=== PATIENT | male | born 1980 | race Caucasian/White ===

== ENCOUNTER 2020-05-25 17:18 | Emergency (ER) | payer BC, SELFPAY ==
--- NOTE | ~2020-05-25 | XR_ITS ---
EXAMINATION: XR chest 2V DATE: 05/25/2020 19:55 INDICATION: Weakness. TECHNIQUE: Frontal and lateral views of the chest were obtained. COMPARISON: Chest 2 views 11/04/2017 FINDINGS: The chest demonstrates clear lungs without pneumonia, pleural effusion, or pneumothorax. Th e heart size is normal. IMPRESSION: 1. No acute cardiopulmonary disease. Reviewed, dictated and finalized at location A.
[2020-05-25 17:33] VITALS: BP 121/80; PULSE 85; RESP 16; TEMP 36.1; O2SAT 99
--- NOTE | 2020-05-25 19:15 | ECG_ITS ---
Measurements Intervals [place] Rate: 80 P: 22 DE: 141 QRS: 36 QRSD: 98 T: 33 QT: 362 QTc: 419 Interpretive Statements SINUS RHYTHM INCOMPLETE RIGHT BUNDLE BRANCH BLOCK BORDERLINE ECG Electronically Signed On 05-25-2020 20:08:43 CDT by Arias Costa D.O.
[2020-05-25 19:49] LABS: Basophils Percent Auto 0.5 % (0.2-1.2); Eosinophils Absolute Auto 0.4 K/mm3 (0-0.3); Eosinophils Percent Auto 4.7 % (0-4.4); Hematocrit 47.2 % (42.0-52.0); Hemoglobin 16.2 g/dL (14.0-18.0); Immature Granulocyte Absolute 0.02 K/mm3 (0.00-0.031); Immature Granulocyte Percent A 0.2 % (0-0.5); Lymphocytes Absolute Auto 2.49 K/mm3 (0.9-3.2); Lymphocytes Percent Auto 30.3 % (18.3-44.2); Mean Corpuscular HGB Conc 34.3 g/dl (32-36); Mean Corpuscular Hemoglobin 31.8 pg (26-34); Mean Corpuscular Volume 92.5 fl (80-100); Mean Platelet Volume 9.6 fl (7.4-10.4); Monocytes Absolute Auto 0.4 K/mm3 (0.1-0.6); Monocytes Percent Auto 5.3 % (2.6-8.5); Neutrophils Absolute Auto 4.9 K/mm3 (1.3-6.7); Platelet Count Result 288 k/mm3 (150-375); Red Cell Distribution Width 13.2 % (11.5-14.5); White Blood Count 8.2 K/mm3 (4.5-10.0)
--- NOTE | 2020-05-25 19:52 | ED.WEAKNESS ---
HPI - Weakness General Chief complaint: Weakness Stated complaint: no appetite, in a daze, no energy, achey Time Seen by Provider: 05/25/20 19:21 History of Present Illness HPI Narrative: Patient is a 39-year-old male who presents the ER with generalized fatigue for the last week. Reports he is having inability to sleep at night. He has decreased appetite. Denies depressed mood. He is concerned about his thyroid because his sister had thyroid cancer. He also endorses mild sinus congestion with cough when he lays down at night and when he wakes up in the morning. No fevers or chills or sweats. No chest pain/chest pressure. No exertional functional decline. Related Data Home Medications Medication Instructions Recorded Confirmed No Home Medications 05/25/20 05/25/20 Allergies Allergy/AdvReac Type Severity Reaction Status Date / Time No Known Allergies Allergy Verified 05/25/20 19:16 Review of Systems Review of Systems: All systems reviewed & are unremarkable except as noted in HPI and below Constitutional: Constitutional: Denies chills, Reports fatigue, Denies fever(s) and Reports weakness ENT: Denies dizziness, Reports nasal congestion and Denies sore throat Cardiovascular: Cardiovascular: Denies chest pain and Denies radiating jaw, neck or arm pain Respiratory: Respiratory: Denies cough, Denies dyspnea and Denies wheezing Psychiatric: Psychiatric: Denies anxiety, Denies depression and Denies suicidal ideation PMFSH Past Medical History Medical History (Updated 05/25/20 @ 22:01 by Denzel Cheung MD) Healthy adult male Surgical History Surgical History (Updated 05/25/20 @ 19:54 by Denzel Cheung MD) History of gastric bypass Social History Social History (Updated 05/25/20 @ 19:54 by Denzel Cheung MD) Smoking status: Never smoker Exam Narrative: Exam Narrative: GENERAL: Well-appearing, well-nourished, and in no acute distress. HEAD: Normocephalic, atraumatic. CHEST: Clear to auscultation. No respiratory distress. HEART: Regular rate and rhythm. Normal peripheral pulses. ABDOMEN: Soft, nontender, nondistended. EXTREMITIES: Normal range of motion. No edema. NEURO: Alert and oriented x3. PSYCH: Normal mood and affect. Course Course Emergency Course: Patient informed of results. Recommend follow-up with PCP for evaluation of elevated TSH but normal free T4. Vital Signs Vital signs: Vital Signs Temperature 96.9 F L 05/25/20 17:33 Pulse Rate 85 05/25/20 17:33 Respiratory Rate 16 05/25/20 17:33 Blood Pressure 121/80 05/25/20 17:33 Pulse Oximetry 99 05/25/20 17:33 Temperature 96.9 F L 05/25/20 17:33 Pulse Rate 93 05/25/20 21:57 Respiratory Rate 14 05/25/20 21:57 Blood Pressure 143/9 H 05/25/20 21:57 Pulse Oximetry 97 05/25/20 21:57 MDM - Weakness Lab Data Result diagrams: 05/25/20 19:41 05/25/20 19:41 Labs: Lab Results 05/25/20 05/25/20 05/25/20 Range/Units 19:41 19:41 19:59 WBC 8.2 (4.5-10.0) K/mm3 RBC 5.10 (4.6-6.20) M/mm3 Hgb 16.2 (14.0-18.0) g/dL Hct 47.2 (42.0-52.0) % MCV 92.5 (80-100) fl MCH 31.8 (26-34) pg MCHC 34.3 (32-36) g/dl RDW 13.2 (11.5-14.5) % Plt Count 288 (150-375) k/mm3 MPV 9.6 (7.4-10.4) fl Immature Gran % (Auto) 0.2 (0-0.5) % Neut % (Auto) 59.0 (45.5-73.1) % Lymph % (Auto) 30.3 (18.3-44.2) % [place] % (Auto) 5.3 (2.6-8.5) % Eos % (Auto) 4.7 H (0-4.4) % Baso % (Auto) 0.5 (0.2-1.2) % Lymph # (Auto) 2.49 (0.9-3.2) K/mm3 [place] # (Auto) 0.4 (0.1-0.6) K/mm3 Eos # (Auto) 0.4 H (0-0.3) K/mm3 Baso # (Auto) 0.0 (0.0-0.1) K/mm3 Abs Immat Gran (auto) 0.02 (0.00-0.031) K/mm3 Absolute Neuts (auto) 4.9 (1.3-6.7) K/mm3 Absolute Nucleated RBC 0.0 (0.0-0.012) K/mm3 Nucleated RBC % 0.0 (0.0-0.2) % Sodium 138 (137-145) mmol/L Potassium 4.4 (3.4-5.0) mmol/L Chlo
[2020-05-25 20:01] LABS: Alanine Aminotransferase 32 U/L (4-50); Albumin Level 4.3 g/dL (3.5-5.1); Alkaline Phosphatase 78 U/L (38-126); Aspartate Amino Transferase 38 U/L (17-59); Bilirubin,Total 2.3 mg/dL (0.2-1.3); Blood Urea Nitrogen 10 mg/dL (9-20); Carbon Dioxide 24 mmol/L (22-30); Chloride 104 mmol/L (98-107); Estimated CRCL calculation 159 ml/min; Estimated Glomerular Filt Rate > 60; Glucose 109 mg/dL (75-110); Potassium 4.4 mmol/L (3.4-5.0); Sodium 138 mmol/L (137-145)
[2020-05-25 20:45] LABS: Add Urine Microscopic? YES; Appearance Urine Clear (Clear); Bacteria Urine Trace /hpf; Bilirubin Urine 1+ (Negative); Blood Urine Negative (Negative); Color Urine Yellow (Yellow); Glucose Urine UA Negative (Negative); Ketones Urine Negative (Negative); Leukocyte Esterase Ur Negative LEU/UL (Negative); Mucus Urine Heavy /lpf; Nitrate Urine Negative (Negative); Protein Urine 1+ mg/dL (Negative); Specific Grav Ur 1.024 (1.001-1.035); Squamous Epithelial Cell Urine Moderate /hpf (Few); WBC Urine 0-3 /hpf
[2020-05-25 21:34] LABS: Free T4 Free Thyroxine Reflex 1.02 ng/dL (0.78-2.19)
[2020-05-25 21:57] VITALS: BP 143/9; PULSE 93; RESP 14; O2SAT 97
[2020-05-25 22:19] LABS: Total Triiodothyronine (T3) 1.38 NG/ML (0.97-1.69)
== END 2020-05-25 22:19 | disposition home or self-care (01) ==
PROVIDERS: Emergency Provider Emergency Medicine; PCP Family Medicine
DX: R53.83 Other fatigue (principal); Z98.84 Bariatric surgery status
CPT/HCPCS: 36415; 71046; 80053; 81001; 84439; 84443; 84480; 85025; 93005; 99283

== ENCOUNTER 2021-09-05 16:16 | Outpatient (CLI) | payer OTHER, SELFPAY ==
--- NOTE | ~2021-09-05 | XR_ITS ---
XR hip RT min 2V 09/05/2021 18:34 INDICATION: Polyarthralgia PROCEDURE: 2 view right hip COMPARISON: No prior studies for comparison. FINDINGS: Fracture, dislocation or subluxation is not identified. No significant joint space narrowin g. The soft tissues appear within normal limits. No foreign bodies are identified. IMPRESSION: 1: NO ACUTE BONE OR JOINT ABNORMALITY IDENTIFIED. Reviewed, dictated and finalized at location A.
--- NOTE | ~2021-09-05 | XR_ITS ---
XR sacroiliac joints min 3V 09/05/2021 18:34 Indication: Polyarthralgia Procedure: 6 views of the sacroiliac joints Comparison: No prior studies for comparison. Findings: There is mild bilateral symmetric degenerative changes of the sacroiliac joints. No erosive changes. No ankylosis. Sacral foramen are symmetric. Impression: 1: Mild bilateral symmetric degenerative changes of the sacroiliac joints. Reviewed, dictated and finalized at location A. Impression: 1: Mild bilateral symmetric degenerative changes of the sacroiliac joints.
--- NOTE | ~2021-09-05 | XR_ITS ---
XR knee RT 2V, XR knee LT 2V 09/05/2021 18:34 Indication: Polyarthralgia Procedure: 2 views each knee Comparison: No prior studies for comparison. Findings: There is mild-moderate bilateral tricompartment osteoarthritis of the knee, most advanced i n the medial compartments, left greater than right. No fracture, subluxation or dislocation. No signi ficant joint effusion. Impression: 1: Mild-moderate bilateral tricompartment osteoarthritis of the knees, left greater than right. Reviewed, dictated and finalized at location A. Impression: 1: Mild-moderate bilateral tricompartment osteoarthritis of the knees, left gre ater than right. Impression: 1: Mild-moderate bilateral tricompartment osteoarthritis of the knees, left gre ater than right.
--- NOTE | ~2021-09-05 | XR_ITS ---
XR hand BI arthritis min 3V 09/05/2021 18:34 Indication: Polyarthralgias Procedure: 4 views each hand Comparison: No prior studies for comparison. Findings: There is a small foreign body in the soft tissues dorsal to the right fifth metacarpal. Riri nt spaces in the hands are normal. No significant degenerative change. No erosions. No significant so ft tissue swelling. Impression: 1: No significant bone or joint abnormality. No significant osteoarthritis or evidence for erosive ch alberta. Reviewed, dictated and finalized at location A. Impression: 1: No significant bone or joint abnormality. No significant osteoarthritis or e vidence for erosive change.
== END 2021-09-05 16:17 ==
DX: M25.50 Pain in unspecified joint (principal); M17.0 Bilateral primary osteoarthritis of knee
CPT/HCPCS: 72202; 73130; 73502; 73560

== ENCOUNTER 2021-11-24 01:51 | Emergency (ER) | payer OTHER, SELFPAY ==
--- NOTE | ~2021-11-24 | XR_ITS ---
XR chest 1V portable INDICATION: Left-sided chest pain TECHNIQUE: 2 view chest. FINDINGS: 05/25/2020 There is mild bilateral interstitial prominence and peribronchial cuffing. There is no focal consoli dation, pleural effusion, or pneumothorax. The cardiomediastinal silhouette is normal. IMPRESSION: 1. Findings most consistent with bronchiolitis versus an atypical or viral pneumonia. Reviewed, dictated and finalized at location A. [employer]IC HELPER IMPRESSION: 1. Findings most consistent with bronchiolitis versus an atypical or viral [facility].
--- NOTE | 2021-11-24 01:54 | ECG_ITS ---
Measurements Intervals [place] Rate: 91 P: 16 MO: 146 QRS: 28 QRSD: 99 T: 32 QT: 348 QTc: 430 Interpretive Statements SINUS RHYTHM INCOMPLETE RIGHT BUNDLE BRANCH BLOCK BORDERLINE ECG Electronically Signed On 11-24-2021 5:57:57 CANE BURNER by Arias Costa D.O.
[2021-11-24] MEDS: ASPIRIN 81 MG CHEWABLE TABLET 324 MG PO (02:10)
[2021-11-24 02:11] VITALS: BP 136/96; PULSE 103; RESP 17; TEMP 36.7; O2SAT 98
[2021-11-24 02:14] LABS: Basophils Percent Auto 0.4 % (0.2-1.2); Eosinophils Absolute Auto 0.1 K/mm3 (0-0.3); Eosinophils Percent Auto 1.5 % (0-4.4); Hematocrit 46.8 % (42.0-52.0); Hemoglobin 15.6 g/dL (14.0-18.0); Immature Granulocyte Absolute 0.02 K/mm3 (0.00-0.031); Immature Granulocyte Percent A 0.4 % (0-0.5); Lymphocytes Absolute Auto 1.51 K/mm3 (0.9-3.2); Lymphocytes Percent Auto 28.7 % (18.3-44.2); Mean Corpuscular HGB Conc 33.3 g/dl (32-36); Mean Corpuscular Hemoglobin 30.7 pg (26-34); Mean Corpuscular Volume 92.1 fl (80-100); Mean Platelet Volume 9.8 fl (7.4-10.4); Monocytes Absolute Auto 0.5 K/mm3 (0.1-0.6); Monocytes Percent Auto 8.5 % (2.6-8.5); Neutrophils Absolute Auto 3.2 K/mm3 (1.3-6.7); Neutrophils Percent Auto 60.5 % (45.5-73.1); Platelet Count Result 217 k/mm3 (150-375); Red Blood Count 5.08 M/mm3 (4.6-6.20); Red Cell Distribution Width 13.4 % (11.5-14.5); White Blood Count 5.3 K/mm3 (4.5-10.0)
[2021-11-24 02:18] VITALS: PULSE 97
[2021-11-24 02:24] LABS: INR 1.1; Prothrombin Time 14.1 Seconds (11.1-14.7)
[2021-11-24 02:25] LABS: Partial Thromboplastin Time 31.2 SECONDS (22.3-36.8)
[2021-11-24 02:28] LABS: Alanine Aminotransferase 47 U/L (4-50); Albumin Level 4.3 g/dL (3.5-5.1); Alkaline Phosphatase 72 U/L (38-126); Anion Gap 13 mmol/L (8-16); Aspartate Amino Transferase 48 U/L (17-59); Bilirubin,Total 1.2 mg/dL (0.2-1.3); Blood Urea Nitrogen 12 mg/dL (9-20); Calcium 8.7 mg/dL (8.4-10.2); Carbon Dioxide 19 mmol/L (22-30); Chloride 104 mmol/L (98-107); Estimated CRCL calculation 191 ml/min; Estimated Glomerular Filt Rate > 60; Glucose 110 mg/dL (65-110); Lipase 52 U/L (23-300); Sodium 136 mmol/L (137-145)
[2021-11-24] MEDS: ALBUTEROL SULFATE (*SP) INHALER 2 PUFF INHALATION (02:38)
[2021-11-24 02:39] LABS: Troponin I < 0.012 ng/mL (0.000-0.034)
[2021-11-24 03:03] LABS: D Dimer < 0.22 ug/mL (<0.48)
[2021-11-24] MEDS: BENZONATATE 100 MG CAPSULE 200 MG PO (03:05)
[2021-11-24 03:07] VITALS: BP 129/86; PULSE 106; RESP 20; O2SAT 97
--- NOTE | 2021-11-24 03:23 | ED.GENADULT ---
HPI - General Adult General Chief complaint: Chest Pain Stated complaint: chest heavy, shortness of breath Time Seen by Provider: 11/24/21 02:09 History of Present Illness HPI narrative: Patient is a 41-year-old gentleman who presents the emergency department with chief complaint of chest tightness. Patient reports he was diagnosed with COVID-19 and reports that he has been coughing the patient reports that he has a tightness and fullness in his chest patient reports symptoms are not improved by anything nor they worsened by anything. Related Data Allergies Allergy/AdvReac Type Severity Reaction Status Date / Time No Known Allergies Allergy Verified 11/24/21 02:09 Review of Systems Review of Systems: A 10 system review of systems was completed on the patient and is negative except for what is stated in the HPI. Nursing and ancillary documentation was reviewed. [facility] Past Medical History Medical History Healthy adult male Surgical History Surgical History History of gastric bypass Family History Family History Other Cerebrovascular accident Diabetes mellitus Family history of coronary artery disease Family history of malignant neoplasm of male breast Hypertension Social History Social History Smoking status: Never smoker Alcohol intake: current Exam Narrative: GENERAL: Well-appearing, well-nourished, and in no acute distress. HEAD: Normocephalic, atraumatic. EYES: PERRLA and EOMI. ENT: Nares clear, no rhinorrhea or epistaxis. Mucous membranes moist. NECK: Supple. CHEST: Clear to auscultation. No respiratory distress. HEART: Regular rate and rhythm. No murmur heard. Normal peripheral pulses. ABDOMEN: Soft, nontender, nondistended, normal active bowel sounds. EXTREMITIES: Normal range of motion. No edema. SKIN: Warm, dry, no rash. NEURO: No focal deficits. Alert and oriented x3. PSYCH: Normal mood and affect. Course Course Emergency Course: Chest x-ray shows no evidence of focal consolidation EKG shows sinus rhythm rate of [address] elevation or ST depression Vital Signs Vital signs: Vital Signs Temperature 36.7 C 11/24/21 02:11 Pulse Rate 103 H 11/24/21 02:11 Respiratory Rate 17 11/24/21 02:11 Blood Pressure 136/96 H 11/24/21 02:11 Pulse Oximetry 98 11/24/21 02:11 Temperature 36.7 C 11/24/21 02:11 Pulse Rate 106 H 11/24/21 03:07 Respiratory Rate 20 11/24/21 03:07 Blood Pressure 129/86 11/24/21 03:07 Pulse Oximetry 97 11/24/21 03:07 Medical Decision Making Vital Signs Vital Signs: Vital Signs Temperature 36.7 C 11/24/21 02:11 Pulse Rate 103 H 11/24/21 02:11 Respiratory Rate 17 11/24/21 02:11 Blood Pressure 136/96 H 11/24/21 02:11 Pulse Oximetry 98 11/24/21 02:11 Temperature 36.7 C 11/24/21 02:11 Pulse Rate 106 H 11/24/21 03:07 Respiratory Rate 20 11/24/21 03:07 Blood Pressure 129/86 11/24/21 03:07 Pulse Oximetry 97 11/24/21 03:07 Lab Data Result diagrams: 11/24/21 02:08 11/24/21 02:08 Labs: Lab Results 11/24/21 11/24/21 11/24/21 Range/Units 02:07 02:07 02:08 WBC 5.3 (4.5-10.0) K/mm3 RBC 5.08 (4.6-6.20) M/mm3 Hgb 15.6 (14.0-18.0) g/dL Hct 46.8 (42.0-52.0) % MCV 92.1 (80-100) fl MCH 30.7 (26-34) pg MCHC 33.3 (32-36) g/dl RDW 13.4 (11.5-14.5) % Plt Count 217 (150-375) k/mm3 MPV 9.8 (7.4-10.4) fl Immature Gran % (Auto) 0.4 (0-0.5) % Neut % (Auto) 60.5 (45.5-73.1) % Lymph % (Auto) 28.7 (18.3-44.2) % [place] % (Auto) 8.5 (2.6-8.5) % Eos % (Auto) 1.5 (0-4.4) % Baso % (Auto) 0.4 (0.2-1.2) % Lymph # (Auto) 1.51 (0.9-3.2) K/mm3 [place] # (Auto) 0.
[2021-11-24] MEDS: MORPHINE SULFATE (*CRX) 4 MG/ML INJ IV PUSH (03:40)
[2021-11-24 04:06] VITALS: BP 120/76; PULSE 98; RESP 20; O2SAT 96
== END 2021-11-24 04:08 | disposition home or self-care (01) ==
PROVIDERS: Emergency Provider Emergency Medicine; PCP Family Medicine
DX: U07.1 COVID-19 (principal); R07.89 Other chest pain; Z98.84 Bariatric surgery status
CPT/HCPCS: 36415; 71045; 80053; 83690; 84484; 85025; 85380; 85610; 85730; 93005; 94640; 96374; 99284; A9270; J2270

== ENCOUNTER 2022-07-11 18:13 | Emergency (ER) | payer BC, SELFPAY ==
--- NOTE | ~2022-07-11 | XR_ITS ---
EXAMINATION: XR chest 2V DATE: 07/11/2022 18:44 INDICATION: Chest pain TECHNIQUE: frontal and lateral views of the chest were obtained. COMPARISON: Chest radiograph dated 11/24/2021 FINDINGS: Assessment of fine pulmonary parenchymal detail is mildly limited by patient body habitus. Lung volum es remain small. No focal airspace opacities, pulmonary edema, pleural effusion or pneumothorax. The cardiomediastinal silhouette is within normal limits for AP technique. Mild thoracic spondylosis. IMPRESSION: 1. Persistent small lung volumes. No acute cardiopulmonary disease. Reviewed, dictated and finalized at location A.
--- NOTE | 2022-07-11 18:21 | ECG_ITS ---
Measurements Intervals [place] Rate: 82 P: -2 MO: 138 QRS: 22 QRSD: 96 T: 32 QT: 368 QTc: 432 Interpretive Statements SINUS RHYTHM EARLY PRECORDIAL R/S TRANSITION BORDERLINE ECG COMPARED TO ECG 11/24/2021 01:59:24 NO SIGNIFICANT CHANGES Electronically Signed On 07-11-2022 20:39:23 CDT by Arias Costa D.O.
[2022-07-11 18:24] VITALS: BP 116/76; PULSE 80; RESP 16; TEMP 36.6; O2SAT 99
[2022-07-11 18:39] LABS: Basophils Absolute Auto 0.1 K/mm3 (0.0-0.1); Basophils Percent Auto 0.7 % (0.2-1.2); Eosinophils Absolute Auto 0.2 K/mm3 (0-0.3); Eosinophils Percent Auto 3.2 % (0-4.4); Hematocrit 42.7 % (42.0-52.0); Hemoglobin 13.6 g/dL (14.0-18.0); Immature Granulocyte Absolute 0.03 K/mm3 (0.00-0.031); Immature Granulocyte Percent A 0.4 % (0-0.5); Lymphocytes Absolute Auto 2.16 K/mm3 (0.9-3.2); Lymphocytes Percent Auto 29.9 % (18.3-44.2); Mean Corpuscular HGB Conc 31.9 g/dl (32-36); Mean Corpuscular Hemoglobin 26.9 pg (26-34); Mean Corpuscular Volume 84.4 fl (80-100); Mean Platelet Volume 10.1 fl (7.4-10.4); Monocytes Absolute Auto 0.6 K/mm3 (0.1-0.6); Monocytes Percent Auto 8.7 % (2.6-8.5); Neutrophils Absolute Auto 4.1 K/mm3 (1.3-6.7); Neutrophils Percent Auto 57.1 % (45.5-73.1); Platelet Count Result 313 k/mm3 (150-375); Red Blood Count 5.06 M/mm3 (4.6-6.20); Red Cell Distribution Width 14.3 % (11.5-14.5); White Blood Count 7.2 K/mm3 (4.5-10.0)
[2022-07-11 18:50] LABS: Alanine Aminotransferase 25 U/L (6-50); Albumin Level 4.3 g/dL (3.5-5.1); Alkaline Phosphatase 62 U/L (38-126); Anion Gap 16 mmol/L (8-16); Aspartate Amino Transferase 28 U/L (17-59); Bilirubin,Total 1.1 mg/dL (0.2-1.3); Blood Urea Nitrogen 9 mg/dL (9-20); Calcium 8.9 mg/dL (8.4-10.2); Carbon Dioxide 21 mmol/L (22-30); Chloride 100 mmol/L (98-107); Estimated CRCL calculation 182 ml/min; Estimated Glomerular Filt Rate > 60; Glucose 111 mg/dL (65-110); Lipase 39 U/L (23-300); Sodium 137 mmol/L (137-145)
[2022-07-11 18:52] LABS: INR 1.2; Prothrombin Time 14.6 Seconds (11.1-14.7)
[2022-07-11 18:53] LABS: Partial Thromboplastin Time 27.4 SECONDS (22.3-36.8)
[2022-07-11 19:02] LABS: Troponin I < 0.012 ng/mL (0.000-0.034)
--- NOTE | 2022-07-11 21:17 | PC.NURSE ---
Addendum entered by Tanya Mark RN 07/11/22 21:27: No obvious distress at time of leaving. PT verbalized understanding to go to closest ED if s/s persist or worsen. a&Ox4, resp even non-labored. skin pwd. Original Note: Pt came up to intake nurse and aske dhow long the wait for a room would be. Nurse could not specify at this time.
== END 2022-07-11 18:24 | disposition left against medical advice (07) ==
PROVIDERS: Emergency Provider Emergency Medicine; PCP Family Medicine
DX: R07.9 Chest pain, unspecified (principal)
CPT/HCPCS: 36415; 71046; 80053; 83690; 84484; 85025; 85610; 85730; 93005; 99199

== ENCOUNTER 2025-01-19 19:43 | Emergency (ER) | payer BC, OTHER, SELFPAY ==
--- NOTE | ~2025-01-19 | XR_ITS ---
XR chest 2V Ordering provider: Jero Parada History: 44 years Male with . cp . Comparison: None. FINDINGS: MEDIASTINUM: The cardiac silhouette is not enlarged. LUNGS: No effusions or pneumothorax. Opacification the left lung base is seen suggestive of atelecta sis versus pneumonia. OTHER: No free air under the diaphragm. Degenerative changes of the spine. IMPRESSION: Left basal atelectasis versus pneumonia. Reviewed, dictated and finalized at location A.
--- NOTE | 2025-01-19 19:43 | ECG_ITS ---
Test Date: 2025-01-19 19:44:04 Measurements Intervals [place] Rate: 90 P: -10 IN: 111 QRS: 41 QRSD: 102 T: 35 QT: 359 QTc: 439 Interpretive Statements SINUS RHYTHM WITH SHORT IN INTERVAL RSR' IN V1 OR V2, PROBABLY NORMAL VARIANT No previous ECG available for comparison Electronically Signed On 01-20-2025 14:00:45 CDT by Obi Razo M.D.
[2025-01-19 19:44] VITALS: BP 138/82; PULSE 102; RESP 24; TEMP 36.4; O2SAT 99
--- OUTSIDE RECORDS SUMMARY | 2025-01-19 19:45 | XMS_ITS | Continuity of Care Document ---
Author Organization [facility] Address [address] [place] [address] [address] [place] [address] Phone Care Team Providers Care Platform Attendant Name Role Phone Gerardo PT,MPT,ATC, Shahriar Unavailable Unavai lable Procedures Procedure Date THERAPEUTIC EXERCISES FUNC ACTIVITY Theratube/band PT EVALUATION THERAPEUTIC EXERCISES FUNC ACTIVITY THERAPEUTIC EXERCISES FUNC ACTIVITY THERAPEUTIC EXERCISES FUNC ACTIVITY THERAPEUTIC EXERCISES FUNC ACTIVITY Theratube/band THERAPEUTIC EXERCISES FUNC ACTIVITY THERAPEUTIC EXERCISES FUNC ACTIVITY THERAPEUTIC EXERCISES FUNC ACTIVITY THERAPEUTIC EXERCISES THERAPEUTIC EXERCISES FUNC ACTIVITY THERAPEUTIC EXERCISES FUNC ACTIVITY THERAPEUTIC EXERCISES FUNC ACTIVITY PT EVALUATION THERAPEUTIC EXERCISES FUNC ACTIVITY Advance Directives Directive Yes / No Effective Date File Name No Information Encounters Encounter Description Practice Location Reason(s) For Visit Diagnoses Date Provider Providers Copied on Encounter [facility], [address] [place], [place] [address], [place], [place], [id number], tel:[phone] [place] No Information 7 [facility] , [place], [place]. Referring Provider: Leonel Flores, [address], [place], [address]. tel:[phone] [facility], [place], [place], [address], [place] tel:[phone] [place] No Information 7 [place], [place], [place]. Referring Provider: Denzel Adam, [address], [place], [address]. tel:[phone] [facility], [place], [place], [address], [place] tel:[phone] [place] Stiffness of left shoulder, not elsewhere classifiedMuscle weakness (generalized)Abn ormal posture 6 [facility], [facility] [place]. [address] [facility], [address], [place], [place], [facility], [place]. tel: [phone] Referring Provider: Leonel Flores, [address], [place], [address]. tel:[phone] [facility] [facility], [place], [place], [address], [place] tel:[phone] [place] No Information 6 [place], [place], [place]. Referring Provider: Denzel Adam, [address], [place], [address]. tel:[phone] [facility], [place], [place], [address], [place] tel:[phone] [place] No Information 6 [place], [place], [place]. Referring Provider: Denzel Adam, [address], [place], [address]. tel:[phone] [facility], [place], [place], [address], [place] tel:[phone] [place] No Information 6 [facility]. , [place], [place]. Referring Provider: Denzel Adam, [address], [place], [address]. tel:[phone] [facility], [address], [place], [place], [address], [place] tel:[phone] [place] No Information 6 [facility] , [place]. Referring Provider: Denzel Adam, [address], [place], [address]. tel:[phone] [facility], [address], [place], [place], [address], [place] tel:[phone] [place] No Information 6 [facility] , [place]. Referring Provider: Denzel Adam, [address], [place], [address]. tel:[phone] [facility], [place], [place], [address], [place] tel:[phone] [place] No Information 6 [facility] , [place], [place]. Referring Provider: Denzel Adam, [address], [place], [address]. tel:[phone] [facility], [address], [place], [place], [address], [place] tel:[phone] [place] No Information 6 [facility] , [place]. Referring Provider: Denzel Adam, [address], [place], [address]. tel:[phone] [facility], [place], [place], [address], [place] tel:[phone] [place] No Information 6 [facility] , [place], [place]. Referring Provider: Denzel Adam, [address], [place], [address]. tel:[phone] [facility], [address], [place], [place], [address], tel:[phone] [place] No Information 6 [place], [place], . Referring Provider: Denzel Adam, [address], [place], [address]. tel:[phone] [facility] [address], [place], [place], [address], [place] tel:[phone] [place] No Information 6 [place], . Referring Provider: Denzel Adam, [address], [facility] [place], [address]. tel:[phone] [facility], [address], [place], [place], [address], tel:[phone] [place] Pain in left shoulderCarpal tunnel syndrome, left upper limbLesion of ulnar nerve, left upper limbParesthesia of skin 6 [place], [place], . Referring Provider: Denzel Adam, [address], [place], [address]. tel:[phone] Family History Family Member Type Diagnosis Age At Onset No Information Payers Payer name Insurance type Covered constitution party ID Authoriza tidick(s) [employer] EPO WC SP [id number] Social History Type Description Quantity Date Captured Comments Sex Male Smoking Status No Information Chief Complaint And Reason For Visit No Information Reason For Referral Reason For Referral No Information History Of Present Illness Encounter Date Complaint History Of Prese nt Illness No Information Functional Status Date Functional Assessmen t No Information Instructions Date Instruction Additional Infor mation No Information Assessments Type Assessment Date No Information Patient Care Teams Name Effective Dates (start - stop) Status Members No Information
--- OUTSIDE RECORDS SUMMARY | 2025-01-19 19:45 | XMS_ITS | Clinical Summary ---
Author Organization [facility] Address [address] [place] [address] Care Team Providers Care Industrial Engineering Technician Name Role Phone Lizy Nelson NP Primary Care Provider [phone] Allergies No known active allergies Medications citalopram (CeleXA) 40 mg tablet Take 1 tablet (40 mg total) by mouth daily 90 tablet 1 4 Active doxycycline (VIBRAMYCIN) 100 mg capsule Take 1 tablet/capsule (100 mg total) by mouth daily Per patient for acne 90 tablet/capsu le 4 Active nystatin powder Apply topically 4 (four) times a day 15 g 2 4 01/26/20 25 Active Additional Information Patient not taking.Reported on 08/15/2024 clotrimazole 1 % cream Apply topically 2 (two) times a day as needed (Rash) 30 g 2 4 Active Additional Information Patient not taking.Reported on 08/15/2024 ergocalciferol (VITAMIN D) 50,000 unit capsule Take 1 capsule (50,000 Units total) by mouth once a week 12 capsule 1 4 Active ferrous sulfate 325 mg (65 mg of elemental iron) tabletIndicatio ns:Iron Deficiency Anemia Take 1 tablet (325 mg total) by mouth daily with breakfast 90 tablet 1 4 Active oxyCODONE (ROXICODONE) 5 mg immediate release tabletIndicatio ns:Pain Take 1 tablet (5 mg total) by mouth every 6 (six) hours as needed for pain 10 tablet 4 Active Additional Information Patient not taking.Reported on 08/15/2024 ketoconazole (NIZORAL) 2 % cream Apply topically 2 (two) times a day 60 g 2 4 Active Additional Information Patient not taking.Reported on 08/15/2024 lidocaine (ASPERCREME) 4 % adhesive patch,medicated Place 1 patch on the skin daily 30 patch 4 Active Additional Information Patient not taking.Reported on 08/15/2024 orphenadrine ER (NORFLEX) 100 mg 12 hr tabletIndicatio ns:Muscle Spasm Take 1 tablet (100 mg total) by mouth 2 (two) times a day for 7 days 14 tablet 4 Active lidocaine (LIDODERM) 5 %Indications:Pa in Place 1 patch on the skin daily Use patch for 12 hours on, 12 hours off. Discard after each use 7 patch 4 Active naproxen (NAPROSYN) 500 mg tablet Take 1 tablet (500 mg total) by mouth 2 (two) times a day with meals 30 tablet 4 Active Additional Information Patient not taking.Reported on 08/15/2024 oxyCODONE-aceta minophen (PERCOCET) 10-325 mg per tabletIndicatio ns:Pain Take 1 tablet by mouth every 6 (six) hours as needed for pain for up to 12 doses 12 tablet 4 Active Additional Information Patient not taking.Reported on 08/15/2024 gabapentin (NEURONTIN) 300 mg capsuleIndicati ons:Neuropathic Pain Take 1 capsule (300 mg total) by mouth 2 (two) times a day for 10 days 20 capsule 4 Active Active Problems Problem Noted Date Diagnosed Date Incisional hernia without obstruction or gangren e 11/05/2022 Overview (11/05/2022): Added automatically from request for surgery [id number] Polyarthralgia 08/28/2021 Overview (09/14/2021): Labs 08/28/2021 CBC and CMP unremarkable CRP and ESR wnl RF, CCP, and 14.3.3 eta negative Xrays 09/05/2021 XR B knees - mild/moderate tricompartmental OA, L>R XR B hands - negative XR SI joints - OA XR R hip - negative Ultrasound US right hand/wrist (09/05/21):Mild effusions and power doppler on examination. Marked synovial thickening in the 2nd and 3rd PIP joints. Moderate synovial thickening in the wrist and 3rd and 4th MCP joints. Grade 1 effusion in the 2nd and 3rd PIP joints. Grade 1 power doppler in the wrist and radial/scaphoid joint. An enlarged median nerve at 0.16 cm2 is identified. Assessment & Plan (01/26/2024 3:55 PM CDT): Has seen Rheumatology in the past, RA not present. Discussed OA and will likely trial Meloxicam or Diclofenac but want updated labs first. Assessment & Plan (09/14/2021 3:07 PM CDT): 41yoM with a FH of PsA presents for evaluation due to joint popping/cracking. His joint complaints sound primarily mechanical, no significant inflammatory symptoms with very transient AM stiffness. Our workup shows unremarkable serologies, xrays with OA, and hand/wrist ultrasound without significant active inflammatory changes. There is not evidence of underlying rheumatologic diagnosis at this time, suspect pain 2/2 OA. Avoid NSAIDs due to gastric bypass, recommend Tylenol and Turmeric, follow up with PCP and our office as needed. Assessment & Plan (08/28/2021 4:33 PM CDT): 41yoM with a FH of PsA presents for evaluation due to joint popping/cracking. His joint complaints sound primarily mechanical, no significant inflammatory symptoms with very transient AM stiffness. However, he is noted to have synovitis in a few joints by exam without ttp. Given his FH and exam findings, there is suspicion for underlying inflammatory arthritis, though this likely is not the culprit for his joint complaints. To evaluate, will check labs and imaging as below with plan for follow up in 2 weeks to review results. Depression 05/25/2012 Assessment & Plan (01/26/2024 3:56 PM CDT): Stable on Citalopram 40 mg, refill sent. DJD (degenerative joint disease) 05/25/2012 GERD (gastroesophageal reflux disease) 2 Glaucoma 05/25/2012 Hyperlipidemia 05/25/2012 Assessment & Plan (01/26/2024 3:55 PM CDT): Patient notes this was prior to his gastric surgery. Will get updated labs. No medications on board. Hypertension 05/25/2012 Assessment & Plan (01/26/2024 3:55 PM CDT): Patient notes this was prior to his gastric surgery. Will get updated labs. No medications on board. Hypothyroid 05/25/2012 Assessment & Plan (01/26/2024 3:55 PM CDT): Patient notes this was prior to his gastric surgery. Will get updated labs. No medications on board. Morbid obesity 05/25/2012 CHRISTINE on CPAP 05/25/2012 Overview (01/26/2024): bipap--24 cm Assessment & Plan (01/26/2024 3:55 PM CDT): Continues CPAP Psoriasis 05/25/2012 Immunizations Immunization Administration Dates Next Due Influenza, Quadrivalent, Spl it, Preservative Free, Intramuscular 08/02/2019 Influenza, Unspecified 11/10/2023(Deferr ed: Patient Refused),11/10/2022(Deferred: Patient Refused),09/23/2021 Surgical History Surgery Date Site/Laterality Comments CHOLECYSTECTOMY GASTRIC BYPASS 05/11/2012 SHOULDER ARTHROSCOPY DISTAL CLAVICLE EXCISION AND OPEN ROTATOR CUFF REPAIR Left INCISIONAL HERNIA REPAIR Medical History Medical History Date Comments Migraines Kidney stone Sleep apnea Allergic rhinitis Cough Depression Family History Medical History Relation Name Comments Cancer Father Diabetes Father Hypertension Father rare blood cancer Father Cancer Mother Diabetes Mother Hypertension Mother Rheum arthritis Sister Thyroid disease Sister Relation Name Status Comments Father Alive Mother Alive Sister Alive Social History Tobacco Use Types Packs/Day Years Used Date Smoking Tobacco: Former Cigarettes Passive Smoke Exposure: Current AUDIT-C Answer Date Recorded Q1: How often do you have a drink containing alcohol? 4 or more times a week 11/26/2022 Q2: How many drinks containi ng alcohol do you have on a typical day when you are drinking? 1 or 2 3 Q3: How often do you have si x or more drinks on one occasion? Monthly 11/26/2022 PHQ-2 Answer Date Recorded PHQ-2 Total Score (If total score is 3 or more points, staff should administer the PHQ-9) 0 01/26/2024 Personal Safety Answer Date Recorded Have you ever been in or are you currently in a harmful physical or emotional relationship or is someone making you feel afraid or unsafe? Denies 04/04/2024 Sex and Gender Information Value Date Recorded Sex Assigned at Not on file Legal Sex Male 10:42 AM BULK SUGAR HANDLER Gender Identity Not on file Sexual Orientation Not on file Obstetrics History Last Filed Vital Signs Vital Sign Reading Time Taken Comments Blood Pressure 132/76 08/15/2024 10:46 AM CDT Pulse 105 08/15/2024 10:46 AM CDT Temperature 36.8 C (98.2 F) 08/15/2024 10:46 AM CDT Respiratory Rate 20 08/15/2024 10:4 6 AM CDT Oxygen Saturation 96% 08/15/2024 10: 46 AM CDT Inhaled Oxygen Concentration - - Weight 177.9 kg (392 lb 3.2 oz) 024 10:46 AM CDT Height 182.9 cm (6') 02/17/2024 7:31 PM CDT Body Mass Index 53.19 02/17/2024 7:31 PM CDT Plan of Treatment Health Maintenance Due Date Last Done Comments Colon Cancer Screening-Colonoscopy 1979 Hepatitis C Screening 1979 DTaP/Tdap/Td Vaccine (1 - Tdap) 1990 Hepatitis B Screening 1997 Influenza Vaccine (#1) 2024 , 08/02/2019 Depression Screening 01/25/2025 01/26/2024 Regular Well Visit/Exam 18-64 01/25/2025 01/26/2024 HPV Vaccines Aged Out No longer eligi ble based on patient's age to complete this topic Pneumococcal vaccine <65 Aged Out No longer eligible based on patient's age to complete this topic Medical Devices Implanted Type Area Director Of Psychology Device Identifier Shelf Expiration Date Model / Serial / Lot [employer] Inc/C R Bard Ventralight St Sepra 8x6in Uncoated Monofilament Lightweight [id number] - [id number] Implanted:Qty: 1 on 11/26/2022 by Lon Hilario MD at [facility] N/A: Abdomen [employer] Bard 03/07/2024 [id number] / / [id number] [employer]/C R Bard Ventralight St Sepra 8x6in Uncoated Monofilament Lightweight [id number] - [id number] Implanted:Qty: 1 on 11/26/2022 by Lon Hilario MD at [facility] N/A: Abdomen [employer]/C R Bard 03/07/2024 [id number] / / [id number] Insurance [facility] [employer] [facility] CHOICE PLUS [id number] (Work) [address] CHOICE PLUS [facility] CHOICE PLUS Care Teams Industrial Engineering Technician Relationship Specialty Start Date End Date Lizy Nelson NP [address] [address] PCP - General Family Medicine 01/26/24
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
--- OUTSIDE RECORDS SUMMARY | 2025-01-19 19:45 | XMS_ITS | Clinical Summary ---
Author Organization [facility] Address [address] [place] [address] Phone Care Team Providers Care Sql Ssrs Developer Name Role Phone Lindy Wheeler MD Primary Care Provider [phone] Allergies No known active allergies Medications lisinopril 10 MG PO TABS Take 10 mg by mouth nightly. Active montelukast (SINGULAIR) 10 MG PO TABS Take 10 mg by mouth every evening. Active levothyroxine 50 MCG PO TABS Take 50 mcg by mouth daily. Active Testosterone (ANDROGEL TD) 10 g by Transdermal route daily. Active citalopram 10 MG PO TABS Take 10 mg by mouth every evening. Active celecoxib (CELEBREX) 200 MG PO CAPS Take 200 mg by mouth every evening. Active Vitamin D, Ergocalciferol, 43300 UNIT PO CAPS Take 50,000 Units by mouth Every Friday and . Vitamin D2 (ergocalciferol) will have to be swallowed whole. Vitamin D2 is to be restarted on 06/08/12 (2nd week following surgery). Active Calcium Citrate-Vitamin D (CITRACAL + D PO) Take 500 mg by mouth 4 times daily. Per [facility]. Active thiamine 100 MG PO TABS Take 100 mg by mouth daily. Per [facility]. Active multiple vitamins high ADEK PO CHEW Take 1 Tab by mouth 3 times daily. Per [facility]. Active latanoprost 0.005 % OP SOLN Place 1 Drop in affected eye(s) nightly. Both Eyes Active enoxaparin (LOVENOX) 40 MG/0.4ML SC SOLN 40 mg by Subcutaneous route every 12 hours. Patient's home pharmacy has received a script for patient to complete a 10 day course at home post-op Active hydrocodone-roz taminophen 7.5-500 MG/15ML PO SOLN Take 15-20 mL by mouth every 4 hours as needed for Pain. 480 mL 0 2 Active Active Problems Problem Noted Date Diagnosed Date Morbid obesity 05/25/2012 BMI 60.0-69.9, adult 05/25/2012 Overview (05/25/2012): 61 Hypertension 05/25/2012 Hyperlipidemia 05/25/2012 CHRISTINE on CPAP 05/25/2012 Overview (05/25/2012): bipap--24 cm Hypothyroid 05/25/2012 DJD (degenerative joint disease) 05/25/2012 Depression 05/25/2012 GERD (gastroesophageal reflux disease) 2 Psoriasis 05/25/2012 Glaucoma 05/25/2012 Social History Tobacco Use Types Packs/Day Years Used Date Smoking Tobacco: Former Cigarettes 0.5 3 Comments:quit 2000 Alcohol Use Standard Drinks/Week Comments No 0 (1 standard drink = 0.6 oz pur e alcohol) Sex and Gender Information Value Date Recorded Sex Assigned at Not on file Legal Sex Male 4:01 AM CASINO CONTROLLER Gender Identity Not on file Sexual Orientation Not on file Last Filed Vital Signs Vital Sign Reading Time Taken Comments Blood Pressure 125/75 05/29/2012 7:59 AM CDT Pulse 97 05/29/2012 7:59 AM CDT Temperature 36.9 C (98.4 F) 05/29/2012 7:59 AM CDT Respiratory Rate 24 05/29/2012 7:59 AM CDT Oxygen Saturation 93% 05/29/2012 7:59 AM CDT Inhaled Oxygen Concentration - - Weight 195.6 kg (431 lb 4 oz) 05/25/2012 10:06 A M CDT Height 180.3 cm (5' 11 ) 05/25/2012 10:06 AM CDT Body Mass Index 60.15 05/25/2012 10:06 AM CDT Plan of Treatment Not on file Medical Devices Implanted Type Area Airport Operations Manager Device Identifier Shelf Expiration Date Model / Serial / Lot Reinforcement Staple Line Ethicon Ec60 - [id number] Implanted:Qty: 2 on 05/25/2012 by Garland Florian MD at [facility] IMPLANT N/A: Stomach [employer] 02/06/2015 [id number] / / [id number] Description:Seamguard bioabs orbable staple line reinforcement material. Reinforcement Staple Line Ethicon Ec60 - [id number] Implanted:Qty: 6 on 05/25/2012 by Garland Florian MD at [facility] IMPLANT N/A: Stomach [employer] 02/06/2015 [id number] / / [id number] Description:Seamguard bioabs orbable staple line reinforcement material. Advance Directives * Full Code (Latest Code Status on File) Date Activated Date Inactivated Comments 05/28/2012 11:02 AM 05/29/2012 1:18 PM Care Teams Sql Ssrs Developer Relationship Specialty Start Date End Date Lindy Wheeler MD [address] [place] [address] PCP - General Family Medicine 05/11/12
--- OUTSIDE RECORDS SUMMARY | 2025-01-19 19:45 | XMS_ITS | Referral Summary ---
Author Organization [facility] Address [address] [place] [address] Care Team Providers Care Para Machine Operator Name Role Phone Unavailable Primary Care Provider Unavailabl e Source Comments [facility],non-owned Affiliates and Associated Physician Practices is amultiple site organization consisting of ambulatory clinics and hospital sitesin [place], [place], [place] and [place]. This disclosure is being madepursuant to the Care Everywhere program and may not contain all information available regarding this patient. Last updated 18.[facility] Allergies No known active allergies Medications * Be aware that medications may not be up to date on this document. Alwaysverify current medications with the patient. Medication Sig Dispensed Refills Start Date End Date Status ibuprofen (MOTRIN) 600 MG tablet Take 1 Tab by mouth every 6 hours as needed for Pain 20 Tab 0 07/30/2016 Active Active Problems No known active problems Social [...] Mass Index 39.32 07/30/2016 11:33 AM CDT Plan of Treatment Not on file
--- OUTSIDE RECORDS SUMMARY | 2025-01-19 19:45 | XMS_ITS | Referral Summary ---
[facility] Organization [facility] Address [address] [place] [address] Care Team Providers Care Program Engagement Director Name Role Phone Lizy Nelson NP Primary Care Provider [phone] Allergies No known active allergies Medications citalopram [...] (11/05/2022): Added automatically from request for surgery [id number] Polyarthralgia 08/28/2021 Overview (09/14/2021): Labs 08/28/2021 CBC [...] Unspecified 11/10/2023(Deferr ed: Patient Refused),11/10/2022(Deferred: Patient Refused),09/23/2021 Social History Tobacco Use Types Packs/Day Years Used Date Smoking Tobacco: Former Cigarettes Passive Smoke Exposure: Current AUDIT-C Answer Date Recorded Q1: How often do you have a drink containing alcohol? 4 or more times a week 11/26/2022 Q2: How many drinks containi ng alcohol do you have on a typical day when you are drinking? 1 or 2 Q3: How often do you have si [...] on file Legal Sex Male 10:42 AM SUBSTITUTE CROSSING GUARD Gender Identity Not on file Sexual Orientation [...] 02/17/2024 7:31 PM CDT Plan of Treatment Not on file Medical Devices Implanted Type Area Cylinder Block Mechanic Device Identifier Shelf Expiration Date Model / Serial / Lot [employer]ol Inc/C R Bard Ventralight St Sepra 8x6in Uncoated Monofilament Lightweight [id number] - [id number] Implanted:Qty: 1 on 11/26/2022 by Lon Hilario MD at [facility] N/A: Abdomen [employer]/C R Bard 03/07/2024 [id number] / / [id number] [employer]/C R Bard Ventralight St Sepra 8x6in Uncoated Monofilament Lightweight [id number] - [id number] Implanted:Qty: 1 on 11/26/2022 by Lon Hilario MD at [facility] N/A: Abdomen [employer]/C R Bard 03/07/2024 [id number] / / [id number] Insurance [facility] Address: [place] [address] [employer]AN [facility] Address: [facility] [id number] [place] [address] [id number] CHOICE PLUS [facility] Address: [address] [address] [place] [address] [facility] [place] [address] [id number] (Work) [address] CHOICE PLUS [facility] [place]: [place] [address] [facility] CHOICE PLUS [facility] Address: [facility] [id number] [place] [id number] Care Teams Program Engagement Director Relationship Specialty Start Date End Date Lizy Nelson NP [address] [facility] [address] [place] [address] PCP - General Family Medicine 01/26/24
--- OUTSIDE RECORDS SUMMARY | 2025-01-19 19:45 | XMS_ITS | Clinical Summary ---
Author Organization [facility] Address [address] [place] [address] Care Team Providers Care Carbon Paste Mixer Operator Name Role Phone Unavailable Primary Care Provider Unavailabl e Source Comments [facility],non-owned Affiliates and Associated Physician Practices is amultiple site organization consisting of ambulatory clinics and hospital sitesin [place], [place], [place] and [place]. This disclosure is being madepursuant to the Care Everywhere program and may not contain all information available regarding this patient. Last updated 18.[facility] Allergies No known active allergies Medications * [...] 07/30/2016 11:33 AM CDT Plan of Treatment Health Maintenance Due Date Last Done Comments COLOGUARD (AGES 45-75) - COL ON CA SCREENING 1979 COLON MONITORING 1979 COLONOSCOPY - COLON CA SCREENING 1979 CT COLONOGRAPHY - COLON CA SCREENING 1979 Colorectal Cancer Screening 1979 FIT - COLON CA SCREENING 1979 FLEX SIG - COLON CA SCREENING 1979 LIPID TESTING 1979 HIV SCREENING 1994 HEPATITIS C SCREENING 07/16/1997 DTAP/TDAP/TD VACCINES (1 - Tdap) 1998 HEPATITIS B VACCINE (1 of 3 - 19+ 3-dose series) 1998 COVID-19 VACCINE (1 - 2023-2 5 season) 2024 INFLUENZA VACCINE (#1) 2024 DEPRESSION SCREENING 11/10/2024 ZOSTER VACCINE (1 of 2) 2029 HIB VACCINE Aged Out No longer eligi ble based on patient's age to complete this topic HPV VACCINE Aged Out No longer eligi ble based on patient's age to complete this topic MENINGOCOCCAL (Group B) VACC INE SHARED DECISION-MAKING Aged Out No longer eligibl e based on patient's age to complete this topic MENINGOCOCCAL GROUPS A/C/Y/W VACCINE Aged Out No longer eligible b ased on patient's age to complete this topic PNEUMOCOCCAL VACCINE Aged Out No long er eligible based on patient's age to complete this topic
[2025-01-19 20:25] LABS: Basophils Percent Auto 0.4 % (0.2-1.2); Eosinophils Absolute Auto 0.1 K/mm3 (0-0.3); Eosinophils Percent Auto 1.2 % (0-4.4); Hematocrit 37.8 % (42.0-52.0); Hemoglobin 11.3 g/dL (14.0-18.0); Immature Granulocyte Absolute 0.04 K/mm3 (0.00-0.031); Immature Granulocyte Percent A 0.5 % (0-0.5); Lymphocytes Absolute Auto 2.02 K/mm3 (0.9-3.2); Lymphocytes Percent Auto 23.9 % (18.3-44.2); Mean Corpuscular HGB Conc 29.9 g/dl (32-36); Mean Corpuscular Hemoglobin 23.5 pg (26-34); Mean Corpuscular Volume 78.8 fl (80-100); Mean Platelet Volume 9.5 fl (7.4-10.4); Monocytes Absolute Auto 0.6 K/mm3 (0.1-0.6); Monocytes Percent Auto 7.2 % (2.6-8.5); Neutrophils Absolute Auto 5.6 K/mm3 (1.3-6.7); Neutrophils Percent Auto 66.8 % (45.5-73.1); Platelet Count Result 305 k/mm3 (150-375); Red Cell Distribution Width 18.3 % (11.5-14.5); White Blood Count 8.4 K/mm3 (4.5-10.0)
[2025-01-19 20:35] LABS: Alanine Aminotransferase 19 U/L (6-50); Albumin Level 3.8 g/dL (3.5-5.1); Alkaline Phosphatase 61 U/L (38-126); Anion Gap 10 mmol/L (4-12); Aspartate Amino Transferase 24 U/L (17-59); Bilirubin,Total 1.1 mg/dL (0.2-1.3); Blood Urea Nitrogen 6 mg/dL (9-20); Calcium 8.2 mg/dL (8.4-10.2); Carbon Dioxide 24 mmol/L (22-30); Chloride 101 mmol/L (98-107); Estimated CRCL calculation 173 ml/min; Estimated Glomerular Filt Rate > 60; Glucose 98 mg/dL (65-110); Lipase 36 U/L (23-300); Potassium 3.8 mmol/L (3.4-5.0); Sodium 135 mmol/L (137-145)
[2025-01-19 20:38] LABS: INR 1.2; Prothrombin Time 16.1 Seconds (11.1-14.7)
[2025-01-19 20:39] LABS: Partial Thromboplastin Time 28.3 Seconds (22.3-36.8)
[2025-01-19 20:47] LABS: Troponin I < 0.012 ng/mL (0.000-0.034)
[2025-01-19 21:01] LABS: Influenza A QL RT-PCR Negative (Negative); Influenza B QL RT-PCR Negative (Negative); RSV RNA, RT-PCR Negative (Negative); SARS-CoV-2 RNA PCR Negative (Negative)
--- NOTE | 2025-01-19 22:28 | ED.CHESTPAIN ---
HPI - Chest Pain General Chief Complaint: Chest Pain Stated Complaint: chest pain Time Seen by Provider: 01/19/25 22:19 History of Present Illness HPI narrative: Patient is a 44-year-old male who presents the emergency department this evening complaining of left-sided chest pain which started approximately 15 minutes prior to arrival. Patient denies any history of cardiovascular disease but admits to family history of cardiovascular disease. Denies any tobacco use, states that the pain is worse with certain movements but he cannot recall any recent events that may have caused him to strain any muscles. Denies any nausea, vomiting or abdominal pain, denies any recent illness, fevers or chills, shortness of breath. No additional symptoms or concerns at this time. Related Data Allergies Allergy/AdvReac Type Severity Reaction Status Date / Time No Known Allergies Allergy Verified 11/24/21 02:09 Review of Systems Review of Systems: All systems are reviewed and are negative unless stated otherwise in the HPI. [facility] Past Medical History Medical History Healthy adult male Surgical History Surgical History History of gastric bypass Family History Family History Other Cerebrovascular accident Diabetes mellitus Family history of coronary artery disease Family history of malignant neoplasm of male breast Hypertension Social History Social History Smoking status: Never smoker Alcohol intake: current Exam Narrative: General: Alert, awake, afebrile, in no acute distress, obese. HEENT: PERRL, no rhinorrhea, no post nasal drip, oropharynx clear. Neck: Trachea midline, no JVD, no lymphadenopathy. Cardiovascular: Regular rate and rhythm, no murmurs, rubs or gallops, no peripheral edema. Respiratory: Clear to auscultation bilaterally, no tachypnea, no wheezing, no rhonchi, no rubs, no respiratory distress. Abdomen: Soft, nontender, nondistended, no rebound, no guarding, no peritoneal signs. Musculoskeletal: No joint swelling or deformity, normal muscle tone. Skin: No rashes or petechia, no signs of infection. Psychiatric: Alert and oriented, normal behavior and judgment for situation. Neurological: Alert and oriented to person, place, and time. Follows all commands. No focal deficits, speech is clear and fluent. Course Vital Signs Vital signs: Vital Signs Temperature 97.6 F 01/19/25 19:44 Pulse Rate 102 H 01/19/25 19:44 Respiratory Rate 24 H 01/19/25 19:44 Blood Pressure 138/82 01/19/25 19:44 Pulse Oximetry 99 01/19/25 19:44 Oxygen Delivery Room Air 01/19/25 19:44 Temperature 97.6 F 01/19/25 19:44 Pulse Rate 92 01/20/25 02:31 Respiratory Rate 26 H 01/20/25 02:31 Blood Pressure 110/79 01/20/25 02:31 Pulse Oximetry 97 01/20/25 02:31 Oxygen Delivery Room Air 01/19/25 23:28 MDM - Chest Pain MDM Narrative Medical decision making narrative: The patient was evaluated by myself in the emergency department. History is obtained from patient who is an independent historian and physical exam was performed. External medical records were reviewed at this time. IV was established and pertinent tests were ordered. Patient was administered a full dose oral chewable aspirin. EKG was obtained which revealed sinus rhythm rate of 90 beats per minute, no evidence of acute ischemia. EKG was independently interpreted by me and is currently pending official cardiology read. Laboratory results obtained revealing no acute process. Initial and 3 hour troponins both noted to be negative. Viral swab negative for COVID/influenza/RSV. 6 hour troponin was also negative. Imaging studies obtained included CXR which was independently interpreted by me revealing: IMPRESSION: Left basal atelectasis versus pneumonia. Differential diagnosis considerations include acute coronary syndrome, GERD, gastritis, pancreatitis, cholecystitis, acute viral syndrome, infectious process such as pneumonia.. Comorbidities impacting this visit include none. I have evaluated and discussed social determinants of health with the patient that could potentially impact subsequent diagnosis and treatment plans. On repeat assessment of the patient, reevaluation revealed that the patient is doing well and is in no acute distress. Patient symptoms have improved since he arrived to our emergency department. Repeat vital signs were all reviewed and noted to be stable. Differential diagnosis and treatment plan were discussed with the patient at bedside. Patient agrees with discussion and after shared medical decision making agrees with discharge. All questions were answered to the patient's satisfaction. Patient will follow up with cardiology in 3-5 days. A script for doxycycline was sent to patient's pharmacy to take as prescribed for his possible pneumonia. Patient was provided with strict return precautions and instructed to return to the emergency department if any new or worsening symptoms develop. The patient was discharged in stable condition. Lab Data 01/19/25 20:19 01/19/25 20:19 Labs: Lab Results 01/19/25 01/19/25 01/20/25 Range/Units 20:19 22:52 02:04 WBC 8.4 (4.5-10.0) K/mm3 RBC 4.80 (4.6-6.20) M/mm3 Hgb 11.3 L (14.0-18.0) g/dL Hct 37.8 L (42.0-52.0) % MCV 78.8 L (80-100) fl MCH 23.5 L (26-34) pg MCHC 29.9 L (32-36) g/dl RDW 18.3 H (11.5-14.5) % Plt Count 305 (150-375) k/mm3 MPV 9.5 (7.4-10.4) fl Immature Gran % (Auto) 0.5 (0-0.5) % Neut % (Auto) 66.8 (45.5-73.1) % Lymph % (Auto) 23.9 (18.3-44.2) % Posey % (Auto) 7.2 (2.6-8.5) % Eos % (Auto) 1.2 (0-4.4) % Baso % (Auto) 0.4 (0.2-1.2) % Lymph # (Auto) 2.02 (0.9-3.2) K/mm3 Posey # (Auto) 0.6 (0.1-0.6) K/mm3 Eos # (Auto) 0.1 (0-0.3) K/mm3 Baso # (Auto) 0.0 (0.0-0.1) K/mm3 Abs Immat Gran (auto) 0.04 H (0.00-0.031) K/mm3 Absolute Neuts (auto) 5.6 (1.3-6.7) K/mm3 Absolute Nucleated RBC 0.000 (0.0-0.012) K/mm3 Nucleated RBC % 0.0 (0.0-0.2) % PT 16.1 H (11.1-14.7) Seconds INR 1.2 APTT 28.3 (22.3-36.8) Seconds Sodium 135 L (137-145) mmol/L Potassium 3.8 (3.4-5.0) mmol/L Chloride 101 (98-107) mmol/L Carbon Dioxide 24 (22-30) mmol/L Anion Gap 10 (4-12) mmol/L BUN 6 L (9-20) mg/dL Creatinine 0.79 (0.7-1.3) mg/dL Estim Creat Clear Calc 173 ml/min Estimated GFR > 60 (59 - ) Glucose 98 (65-110) mg/dL Calcium 8.2 L (8.4-10.2) mg/dL Total Bilirubin 1.1 (0.2-1.3) mg/dL AST 24 (17-59) U/L ALT 19 (6-50) U/L Alkaline Phosphatase 61 (38-126) U/L Troponin I < 0.012 < 0.012 < 0.012 (0.000-0.034) ng/mL NT-Pro-B Natriuret Pep 24 (19.9-100) pg/mL Total Protein 7.0 (6.3-8.2) g/dL Albumin 3.8 (3.5-5.1) g/dL Lipase 36 (23-300) U/L Influenza A (RT-PCR) Negative (Negative) Influenza B (RT-PCR) Negative (Negative) RSV (RT-PCR) Negative (Negative) SARS-CoV-2 RNA (RT-PCR) Negative (Negative) Discharge Plan Discharge Clinical Impression: Chest pain, Pneumonia Patient Disposition: Home, Self-Care Condition: Improved Instructions: Antibiotic Form, Chest Pain (ED), Pneumonia (ED) Additional Instructions: Please follow-up with the human resources hr representative provided with today, call tomorrow to set up a follow-up appointment to be seen within the next 3-5 days. Return to the emergency department if any new or worsening symptoms develop. Take the prescribed antibiotic as instructed. Patient Language: Belarusian Prescriptions: New doxycycline hyclate 100 mg capsule 100 mg PO BID 5 Days Qty: 10 0RF No Action benzonatate 200 mg capsule 200 mg PO TID PRN (Reason: cough) Qty: 21 0RF albuterol sulfate 90 mcg/actuation HFA aerosol inhaler 2 puff inhalation QID PRN (Reason: shortness of breath or wheezing) Qty: 8.5 0RF Follow-up/Referrals: Waldo Blackburn MD [Physician] - 3 Days Valentine,Jayden Nair MD [Primary Care Provider] - 1 Week Time of Disposition: 02:42
--- OUTSIDE RECORDS SUMMARY | 2025-01-19 23:11 | XMS_ITS | Clinical Summary ---
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 Gender Identity Not on file Sexual Orientation [...] this topic Medical Devices Implanted Type Area Prop Worker Device Identifier Shelf Expiration Date Model / Serial / Lot [employer]/C R Bard Ventralight St Sepra 8x6in Uncoated Monofilament Lightweight [id number] - [id number] Implanted:Qty: 1 on 11/26/2022 by Lon Hilario MD at [facility] N/A: Abdomen [employer] Bard 03/07/2024 [id number] / / [id number] [employer]/C R Bard Ventralight St Sepra 8x6in Uncoated Monofilament Lightweight [id number] - [id number] Implanted:Qty: 1 on 11/26/2022 by Lon Hilario MD at [facility] N/A: Abdomen [employer]/C R Bard 03/07/2024 [id number] / / [id number] Insurance [facility] [employer] [facility] CHOICE PLUS [id number] (Work) [id number] CHOICE PLUS [facility] CHOICE PLUS Care Teams Engraver Hand Soft Metals Relationship Specialty Start Date End Date Lizy Nelson NP [address] [address] PCP - General Family Medicine 01/26/24
--- OUTSIDE RECORDS SUMMARY | 2025-01-19 23:11 | XMS_ITS | Encounter Summary ---
Author Organization [facility] Address [address] [place] [address] Care Team Providers Care Vigoureux Printer Name Role Phone Anoop Swanson MD Primary Care Provider [phone] Jayden Valentine MD Primary Care Provider [phone] Encounter Details Date Type Department Care Team (Latest Contact Info) Description 07/03/2018 Abstract [facility] Reji Eng MD Social History Tobacco Use Types Packs/Day Years Used Date Smoking Tobacco: Never Smokeless Tobacco: Never Alcohol Use Standard Drinks/Week Comments Yes 0 (1 standard drink = 0.6 oz pur e alcohol) Sex and Gender Information Value Date Recorded Sex Assigned at Not on file Legal Sex Male 7:05 PM CDT Gender Identity Not on file Sexual Orientation Not on file documented as of this encounter Plan of Treatment Not on file documented as of this encounter Visit Diagnoses Not on filedocumented in this encounter Care Teams Vigoureux Printer Relationship Specialty Start Date End Date Anoop Swanson MD [address] [place] [address] PCP - General INTERNAL MEDICINE 10/28/17 10/05/20 Jayden Valentine MD 4 [facility] [address] [place] [address] PCP - General FAMILY PRACTICE 10/06/20 documented as of this encounter
--- OUTSIDE RECORDS SUMMARY | 2025-01-19 23:11 | XMS_ITS | Clinical Summary ---
Author Organization [facility] Address [address] [place] [address] Care Team Providers Care Route Cdl Driver Name Role Phone Unavailable Primary Care Provider Unavailabl e Source Comments [facility],non-owned Affiliates and Associated Physician Practices is amultiple site organization consisting of ambulatory clinics and hospital sitesin [place], [place] and [place]. This disclosure is being madepursuant to the Care Everywhere program and may not contain all information available regarding this patient. Last updated 18.[facility] Allergies No known active allergies Medications * [...]
--- OUTSIDE RECORDS SUMMARY | 2025-01-19 23:11 | XMS_ITS | Referral Summary ---
Author Organization [facility] Address [address] [place] [address] Care Team Providers Care Lieutenant/Deputy Name Role Phone Unavailable Primary Care Provider Unavailabl e Source Comments [facility],non-owned Affiliates and Associated Physician Practices is amultiple site organization consisting of ambulatory clinics and hospital sitesin [place], [place], [place] and [place]. This disclosure is being madepursuant to the Care Everywhere program and may not contain all information available regarding this patient. Last updated 18.[facility] Allergies No known active allergies Medications * [...]
--- OUTSIDE RECORDS SUMMARY | 2025-01-19 23:11 | XMS_ITS | Clinical Summary ---
Author Organization [facility] Address [address] [place] [address] Care Team Providers Care Slicing Machine Feeder Name Role Phone Jayden Valentine MD Primary Care Provider [phone] Allergies No known active allergies Medications naproxen 500 MG tablet Take 1 tablet (500 mg total) by mouth 2 (two) times daily as needed (pain, spasms.). 60 tablet 07/19/2019 Active tamsulosin 0.4 MG Cap 10/04/2020 Active acetaminophen-c odeine 300-30 MG tablet 10/04/2020 Active CALCIUM CITRATE OR Take 500 mg by mouth 4 (four) times daily. 500 mg four times daily Active Multiple Vitamins-Minera ls (MULTIVITAMIN ADULT) Chew Tab Chew 1 tablet by mouth 3 (three) times daily. Active cyclobenzaprine 5 MG tablet Take 1 tablet (5 mg total) by mouth 3 (three) times daily as needed for Muscle Spasms. 9 tablet 10/06/2020 Active tamsulosin 0.4 MG Cap Take 1 capsule (0.4 mg total) by mouth daily. 20 capsule 12/07/2021 Active Immunizations Name Administration Dates Next Due Influenza Adult (Generic) 09/23/2021 Social History Tobacco Use Types Packs/Day Years [...] Sign Reading Time Taken Comments Blood Pressure 128/90 02/01/2023 9:00 PM CDT Pulse 100 02/01/2023 8:00 PM CDT Temperature 36 C (96.8 F) 02/01/2023 6:07 PM CDT Respiratory Rate 18 02/01/2023 8:00 PM CDT Oxygen Saturation 97% 02/01/2023 9:00 PM CDT Inhaled Oxygen Concentration - - Weight 156.5 kg (345 lb) 02/01/2023 6:07 PM CDT Height 182.9 cm (6') 02/01/2023 6:07 PM CDT Body Mass Index 46.79 02/01/2023 6:07 PM CDT Plan of Treatment Health Maintenance Due Date Last Done Comments Colorectal Cancer Screening Colonoscopy (10 Years) 1979 Annual Physical 1982 Hepatitis C 1997 DTaP, Tdap and Td Vaccines ( 1 - Tdap) 1998 Hepatitis B Vaccines (1 of 3 - 19+ 3-dose series) 1998 COVID-19 Vaccine (2023-2 5 season) 2024 Influenza Adult (#1) 2024 09/23/2021, 08/06/2018 HPV Vaccines Aged Out No longer eligi ble based on patient's age to complete this topic Meningococcal B Vaccine Aged Out No l onger eligible based on patient's age to complete this topic Meningococcal Vaccine Aged Out No renu [place] eligible based on patient's age to complete this topic Pneumococcal Vaccine: Pediatrics (0 to 5 Years) and At-Risk Patients (6 to 64 Years) Aged Out No longer eligible b ased on patient's age to complete this topic RSV Immunizations Under 20 Months Aged Out No longer eligible b ased on patient's age to complete this topic Insurance [facility] Care Teams Slicing Machine Feeder Relationship Specialty Start Date End Date Jayden Valentine MD [address] [facility], [address] [place] [address] PCP - General FAMILY PRACTICE 10/06/20
--- OUTSIDE RECORDS SUMMARY | 2025-01-19 23:11 | XMS_ITS | Continuity of Care Document ---
Author Organization [facility] Address [address] [place] [address] [address] [place] [address] Phone Care Team Providers Care Terminal Superintendent Name Role Phone Gerardo PT,MPT,ATC, Shahriar Unavailable [...] Diagnoses Date Provider Providers Copied on Encounter [facility], [address] [place], [place] [address], [place], [place], [id number], tel:[phone] [place] No Information 7 [facility] , [place], [place]. Referring Provider: Leonel Flores, [address], [place], [address]. tel:[phone] [facility], [place], [place], [id number], [place] tel:[phone] [place] No Information 7 [place], [place], [place]. Referring Provider: Denzel Adam, [address], [place], [address]. tel:[phone] [facility], [place], [place], [id number], [place] tel:[phone] [place] Stiffness of left shoulder, not elsewhere classifiedMuscle weakness (generalized)Abn ormal posture 6 Count Includes [facility] [place]. [address] [facility], [address], [place], [place], [facility], [place]. tel: [phone] Referring Provider: Leonel Flores, [address], [place], [address]. tel:[phone] [facility] [facility], [place], [place], [id number], [place] tel:[phone] [place] No Information 6 [place], [place], [place]. Referring Provider: Denzel Adam, [address], [place], [address]. tel:[phone] [facility], [place], [place], [address], [place] tel:[phone] [place] No Information 6 [place], [place], [place]. Referring Provider: Denzel Adam, [address], [place], [address]. tel:[phone] [facility], [place], [place], [address], [place] tel:[phone] [place] No Information 6 [place]. , [place], [place]. Referring Provider: Denzel Adam, [address], [place], [address]. tel:[phone] [facility], [address], [place], [place], [address], [place] tel:[phone] [place] No Information [address] [place] , [place], [place]. Referring Provider: Denzel Adam, [address], [place], [address]. tel:[phone] [facility], [address], [place], [place], [address], [place] tel:[phone] [place] No Information 6 [place] , [place], [place]. Referring Provider: Denzel Adam, [address], [place], [address]. tel:[phone] [facility], [place], [place], [address], [place] tel:[phone] [place] No Information 6 [place] , [place], [place]. Referring Provider: Denzel Adam, [address], [place], [address]. tel:[phone] [facility], [address], [place], [place], [address], [place] tel:[phone] [place] No Information [address] [place] , [place], [place]. Referring Provider: Denzel Adam, [address], [place], [address]. tel:[phone] [facility], [place], [place], [address], [place] tel:[phone] [place] No Information 6 [place] , [place], [place]. Referring Provider: Denzel Adam, [address], [place], [address]. tel:[phone] [facility], [address], [place], [place], [address], tel:[phone] [place] No Information 6 [place], [place], . Referring Provider: Denzel Adam, [address], [place], [address]. tel:[phone] [facility] [address], [place], [place], [id number], [place] tel:[phone] [place] No Information 6 [place], [place], . Referring Provider: Denzel Adam, [address], [facility] [place], [address]. tel:[phone] [facility], [address], [place], [place], [id number], tel:[phone] [place] Pain in left shoulderCarpal tunnel syndrome, left upper limbLesion of ulnar nerve, left upper limbParesthesia of skin 6 [place], [place], . Referring Provider: Denzel Adam, [address], [place], [address]. tel:[phone] Family History Family Member Type Diagnosis Age At Onset No Information Payers Payer name Insurance type Covered constitution party ID Authoriza tidick(s) [employer] EPO WC SP [id number] Social History Type Description Quantity Date Captured [...]
--- OUTSIDE RECORDS SUMMARY | 2025-01-19 23:11 | XMS_ITS | Patient Health Summary ---
Author Organization [facility] Address [address] [place] [address] Care Team Providers Care Plate Colorer Name Role Phone Unavailable Primary Care Provider Unavailabl e Note from [facility],non-owned Affiliates and Associated Physician Practices is amultiple site organization consisting of ambulatory clinics and hospital sitesin [place], [place], [place] and [place]. This disclosure is being madepursuant to the Care Everywhere program and may not contain all information available regarding this patient. Last updated 18.[facility] [employer] Allergies No known active allergies Medications * [...] Results * XR SHOULDER 2+ VW LEFT [id number] (07/30/2016 11:59 AM CDT) Anatomical Region Laterality Modality Upper Extremity Radiographic Roesy ging 07/30/2016 12:0 7 PM CDT Impressions [...]
--- OUTSIDE RECORDS SUMMARY | 2025-01-19 23:11 | XMS_ITS | Clinical Summary ---
Author Organization [facility] Address [address] [place] [address] Phone Care Team Providers Care Melter Supervisor Oxygen Furnace Name Role Phone Lindy Wheeler MD Primary Care Provider [phone] Allergies No known active allergies Medications lisinopril [...] mouth every evening. 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 Reinforcement Staple Line Ethicon Ec60 - [id number] Implanted:Qty: 6 on 05/25/2012 by Garland Florian MD at [facility] IMPLANT N/A: [employer]ach [employer] 02/06/2015 [id number] / / [id number] Description:Seamguard bioabs orbable staple line reinforcement material. Advance Directives * Full Code (Latest Code Status on File) Date Activated Date Inactivated Comments 05/28/2012 11:02 AM 05/29/2012 1:18 PM Care Teams Melter Supervisor Oxygen Furnace Relationship Specialty Start Date End Date Lindy Wheeler MD [address] [place] [address] PCP - General Family Medicine 05/11/12
--- OUTSIDE RECORDS SUMMARY | 2025-01-19 23:11 | XMS_ITS | Referral Summary ---
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 Gender Identity Not on file Sexual Orientation [...] on file Medical Devices Implanted Type Area Electromedical Equipment Repairer Device Identifier Shelf Expiration Date Model / Serial / Lot [employer] Ventralight St Sepra 8x6in Uncoated Monofilament Lightweight [id number] - [id number] Implanted:Qty: 1 on 11/26/2022 by Lon Hilario MD at [facility] N/A: Abdomen [employer] 03/07/2024 [id number] / / [id number] [employer] Ventralight [employer] Sepra 8x6in Uncoated Monofilament Lightweight [id number] - [id number] Implanted:Qty: 1 on 11/26/2022 by Lon Hilario MD at [facility] N/A: Abdomen [employer] 03/07/2024 [id number] / / [id number] Insurance [employer] [id number] CHOICE PLUS [id number] (Work) [id number] CHOICE PLUS [facility] CHOICE PLUS Care Teams Journal Box Inspector Relationship Specialty Start Date End Date Lizy Nelson NP [address] [facility] [address] [place] [address] PCP - General Family Medicine 01/26/24
[2025-01-19 23:28] VITALS: PULSE 100; O2SAT 100
[2025-01-19 23:29] VITALS: BP 108/76; PULSE 100; RESP 18; O2SAT 100
[2025-01-19 23:42] LABS: Troponin I < 0.012 ng/mL (0.000-0.034)
[2025-01-19 23:55] LABS: NT Pro B Type Natriuretic Pept 24 pg/mL (19.9-100)
[2025-01-20 00:38] VITALS: BP 108/87; PULSE 93; RESP 18; O2SAT 98
[2025-01-20 02:31] VITALS: BP 110/79; PULSE 92; RESP 26; O2SAT 97
[2025-01-20 02:34] LABS: Troponin I < 0.012 ng/mL (0.000-0.034)
[2025-01-20 02:55] VITALS: BP 116/89; PULSE 93; RESP 12; O2SAT 97
== END 2025-01-20 02:56 | disposition home or self-care (01) ==
PROVIDERS: Emergency Provider Emergency Medicine; PCP Family Medicine
DX: J18.9 Pneumonia, unspecified organism (principal); Z20.822 Contact with and (suspected) exposure to COVID-19; Z98.84 Bariatric surgery status; R94.31 Abnormal electrocardiogram [ECG] [EKG]
CPT/HCPCS: 36415; 71046; 80053; 83690; 83880; 84484; 85025; 85610; 85730; 87637; 93005; 99284